=== PATIENT | female | born 1945 | race Caucasian/White ===

== ENCOUNTER 2021-08-22 14:25 | Outpatient (RCR) | payer MEDICARE, SELFPAY ==
--- NOTE | 2021-08-23 14:43 | PT.OPEX ---
PT [place] Outpatient Eval PT [facility] Outpatient Eval Start: 08/22/21 07:10 Freq: Status: Active Protocol: Document 08/22/21 07:10 [email or web address] (Rec: 08/22/21 07:20 [email or web address] [id number]) E-Signed By Shaneka Robertson PT Physical Therapy Outpatient Evaluation Insurance Information Recert Due Date 11/16/21 Insurance Name Medicare B Medical Diagnosis Rt Shoulder Pain Treating Diagnosis Impaired Rt shoulder strength and range Reduced ease of ADL's Referring MD Dr Maria T Bowen Subjective Subjective Fatmata reports having Rt shoulder pain after a fall on August 08. Complete testing of X-ray at knees (ayala TKR) and elbow and shoulder, without fracture. She fell down a hill , which was steeper than she had thought. She landed on her knees and Rt shoulder. I am feeling better now, but thought I should still have it looked at. I have participated in low impact aerobics at [address]. It has not been bothering me. I still am able to walk, I complete 2 -3 miles total per day - not all at once. She is right dominant/involved side. I can sleep on Rt side. I am still able to do full reach and all previous lifting and self cares. Pain Comments 0/10 this past week, but it was initially 5/10 Date of Last Physician Visit 08/17/21 Current Work Status Retired Precautions Treatment Precautions/Contraindications High Blood Pressure, OA, Ayala TKR, Obesity, Basal Cell CA ( forehead), Urinary Incontinence Weight Bearing Status Full Weight Bearing Therapy Limitations/Systems Review Not Limited Objective Range of Motion Ayala shoulder AROM was WNL and symmetric. Completed without report of pain or discomfort Strength Ayala shoulder normal 5/5 and was completed without report of pain. Palpation Unable to recreate pain at shoulder joint or surrounding tissue - with the exception of at ayala med scap border. PA grade 2-3 mobs was pain free. I believe she has an inherant weakness here and is trigger point sensetive. Posture Slight increased upper CX lordosis Sensation/Reflexes Normal ayala biceps DTR Functional Test Performed & Score Functional reach is symmetric Rt=Lt of: IR to T9 without pain. ER to T3 pain free Assessment Assessment/Impression 75 yo with DX of Rt shoulder pain. secondary to fall she had on 08/08/21. She has had X- rays and no fractures found. She has had much less pain over the past few weeks, but wanted to have shoulder cleared before being too active again with exercise classes. She has symmetric Biceps DTR, normal and symmetric AROM and MMT ayala UE. Functional reach behind head and behind back are of very good range and pain free. Deep breath and modified press up without pain. She does have trigger point sensitivity at ayala med scap border - rhomboid insertion. She will benefit from education in a progressive strengthening routine for tristin-scapular mm. Thank you for this referral. Plan of Care Rehabilitation Potential Good Physical Therapy Goals In 1 visit, we will complete: 1. Full Rt shoulder PT evaluation. MET 2. Compile and educate client in strengthening MB/tristin- scapular HEP with HO and written instructions. MET 3. LTG; resume aerobic low impact strengthening class 3X/ Wk at [address] [place] [address]. Coordination/Communication With Referral Source Treatment Plan/Direct Interventions Neuromuscular Re-ed,Self-Care/ Home Management,Therapeutic Exercises Frequency/Duration 1X/Wk for 1 visit, but be placed on HOLD for up to 6 visits should symptoms return or worsen. Patient Will Be Discharged From Therapy Completion of LTG(s),Skills Plateau,Independent w/HEP, Independently Progressing Evaluation Billing Untimed Code Treatment Minutes 24 Complexity Moderate Certification Information Initial Certification Date 08/22/21 Ending Certification Date 11/16/21 Document 08/22/21 15:12 WILFRIDO (Rec: 08/22/21 15:16 [email or web address] [id number]) E-Signed By Shaneka Robertson, PT Physical Therapy Outpatient Evaluation Insurance Information Recert Due Date 11/16/21 Insurance Name Medicare B Medical Diagnosis Rt Shoulder Pain Treating Diagnosis Impaired Rt shoulder strength and range Reduced ease of ADL's Referring MD Dr Maria T Bowen Subjective Subjective Fatmata reports having Rt shoulder pain after a fall on August 08. Complete testing of X-ray at knees (ayala TKR) and elbow and shoulder, without fracture. She fell down a hill , which was steeper than she had thought. She landed on her knees and Rt shoulder. I am feeling better now, but thought I should still have it looked at. I have participated in low impact aerobics at [address] [place] [address]. It has not been bothering me. I still am able to walk, I complete 2 -3 miles total per day - not all at once. She is right dominant/involved side. I can sleep on Rt side. I am still able to do full reach and all previous lifting and self cares. Pain Comments 0/10 this past week, but it was initially 5/10 Date of Last Physician Visit 08/17/21 Current Work Status Retired Precautions Treatment Precautions/Contraindications High Blood Pressure, OA, Ayala TKR, Obesity, Basal Cell CA ( forehead), Urinary Incontinence Weight Bearing Status Full Weight Bearing Therapy Limitations/Systems Review Not Limited Objective Range of Motion Ayala shoulder AROM was WNL and symmetric. Completed without report of pain or discomfort Strength Ayala shoulder normal 5/5 and was completed without report of pain. Palpation Unable to recreate pain at shoulder joint or surrounding tissue - with the exception of at ayala med scap border. PA grade 2-3 mobs was pain free. I believe she has an inherant weakness here and is trigger point sensetive. Posture Slight increased upper CX lordosis Sensation/Reflexes Normal ayala biceps DTR Functional Test Performed & Score Functional reach is symmetric Rt=Lt of: IR to T9 without pain. ER to T3 pain free Assessment Assessment/Impression 75 yo with DX of Rt shoulder pain. secondary to fall she had on 08/08/21. She has had X- rays and no fractures found. She has had much less pain over the past few weeks, but wanted to have shoulder cleared before being too active again with exercise classes. She has symmetric Biceps DTR, normal and symmetric AROM and MMT ayala UE. Functional reach behind head and behind back are of very good range and pain free. Deep breath and modified press up without pain. She does have trigger point sensitivity at ayala med scap border - rhomboid insertion. She will benefit from education in a progressive strengthening routine for tristin-scapular mm. Thank you for this referral. Plan of Care Rehabilitation Potential Good Physical Therapy Goals In 1 visit, we will complete: 1. Full Rt shoulder PT evaluation. MET 2. Compile and educate client in strengthening MB/tristin- scapular HEP with HO and written instructions. MET 3. LTG; resume aerobic low impact strengthening class [place]/ [place] Coordination/Communication With Referral Source Treatment Plan/Direct Interventions Neuromuscular Re-ed,Self-Care/ Home Management,Therapeutic Exercises Frequency/Duration 1X/Wk for 1 visit, but be placed on HOLD for up to 6 visits should symptoms return or worsen. Patient Will Be Discharged From Therapy Completion of LTG(s),Skills Plateau,Independent w/HEP, Independently Progressing Evaluation Billing Untimed Code Treatment Minutes 24 Complexity Moderate Certification Information Initial Certification Date 08/22/21 Ending Certification Date 11/16/21
== END 2021-10-20 08:41 | disposition home or self-care (01) ==
PROVIDERS: PCP Family Medicine; Visit Provider Family Medicine
DX: M25.511 Pain in right shoulder (principal); Z51.89 Encounter for other specified aftercare
CPT/HCPCS: 97110; 97162

== ENCOUNTER 2021-11-07 10:05 | Outpatient (CLI) | payer MEDICARE, SELFPAY ==
[2021-11-07 09:50] LABS: Albumin* 4.3 g/dL (3.3-5.0)
[2021-11-07 09:51] LABS: Chloride* 104 mmol/L (96-114); Potassium* 5.2 mmol/L (3.6-5.1); Sodium* 139 mmol/L (135-149)
[2021-11-07 09:53] LABS: Bilirubin Total* 0.4 mg/dL (0.1-1.5); Carbon Dioxide* 29 mmol/L (20-32); Cholesterol* 218 mg/dL (90-199); Creatinine* 0.7 mg/dL (0.5-1.5); Estimated Glomerular Filt Rate 88 ml/min
[2021-11-07 09:54] LABS: Alanine Aminotransferase* 14 U/L (4-35); Alkaline Phosphatase* 85 U/L (40-150); Aspartate Amino Transferase* 20 U/L (12-35); Blood Urea Nitrogen* 14 mg/dL (7-30); Calcium* 9.2 mg/dL (8.4-10.6); Glucose* 101 mg/dL (60-115); HDL Cholesterol* 61 mg/dL (>=50); LDL Cholesterol Calculated 93 mg/dL (<100); Total Protein* 7.2 g/dL (6.0-8.3); Triglycerides* 322 mg/dL (40-149)
== END 2021-11-07 10:06 | disposition home or self-care (01) ==
PROVIDERS: PCP Family Medicine; Visit Provider Family Medicine
DX: Z00.00 Encounter for general adult medical examination without abnormal findings (principal); I10 Essential (primary) hypertension; E78.5 Hyperlipidemia, unspecified; E66.01 Morbid (severe) obesity due to excess calories
CPT/HCPCS: 80053; 80061

== ENCOUNTER 2021-11-10 09:06 | Outpatient (CLI) | payer MEDICARE, SELFPAY ==
--- NOTE | 2021-11-10 09:15 | CRLHL7_ITS ---
For Patients: As a result of the Century Cures Act, medical imaging exams and procedure reports are released immediately into your electronic medical record. You may view this report before your referring provider. If you have questions, please contact your health care provider. BILATERAL SCREENING MAMMOGRAM WITH COMPUTER-AIDED DETECTION TECHNIQUE: CC and MLO views were obtained. These mammographic images have been obtained using full-field digital technique. These mammographic images were interpreted with the benefit of computer-aided detection. COMPARISON FILM: 10/21/20, 07/31/18, 06/10/17. FINDINGS: There are scattered areas of fibroglandular density IMPRESSION: There is no radiographic evidence for malignancy. ASSESSMENT: BI-RADS Category 1: Negative RECOMMENDATION: Routine screening mammogram in 1 year. A lay language report of this examination will be provided to the patient. Eliot Henry M.D. Diagnostic Radiologist [email or web address] PRESLEY/evette / be/Dictated by: Eliot Henry MD @ 11/10/2021 10:09:00 AM (Electronically Signed)
== END 2021-11-10 09:07 | disposition home or self-care (01) ==
LOC: MAMMO 09:07
PROVIDERS: PCP Family Medicine; Visit Provider Family Medicine
DX: Z12.31 Encounter for screening mammogram for malignant neoplasm of breast (principal)
CPT/HCPCS: 77063; 77067

== ENCOUNTER 2022-11-06 09:15 | Outpatient (CLI) | payer MEDICARE, SELFPAY | END 2022-11-06 09:16 | disposition home or self-care (01) | PROVIDERS: PCP Family Medicine; Visit Provider Family Medicine | DX: E78.5 Hyperlipidemia, unspecified (principal); I10 Essential (primary) hypertension; E66.9 Obesity, unspecified; R73.03 Prediabetes | CPT/HCPCS: 80053; 80061 ==

== ENCOUNTER 2022-11-12 12:58 | Outpatient (CLI) | payer MEDICARE, SELFPAY ==
--- NOTE | 2022-11-12 13:20 | CRLHL7_ITS ---
For Patients: As a result of the Century Cures Act, medical imaging exams and procedure reports are released immediately into your electronic medical record. You may view this report before your referring provider. If you have questions, please contact your health care provider. BILATERAL SCREENING MAMMOGRAM WITH COMPUTER-AIDED DETECTION TECHNIQUE: CC and MLO views were obtained. These mammographic images have been obtained using full-field digital technique. These mammographic images were interpreted with the benefit of computer-aided detection. COMPARISON FILM: 11/10/21, 10/21/20, 07/31/18. FINDINGS: There are scattered areas of fibroglandular density IMPRESSION: There is no radiographic evidence for malignancy. ASSESSMENT: BI-RADS Category 1: Negative RECOMMENDATION: Routine screening mammogram in 1 year. A lay language report of this examination will be provided to the patient. Eliot Henry M.D. Diagnostic Radiologist [email or web address] JOSE/Dictated by: Eliot Henry MD @ 11/13/2022 12:26:00 PM (Electronically Signed)
== END 2022-11-12 12:59 | disposition home or self-care (01) ==
LOC: MAMMO 12:59
PROVIDERS: PCP Family Medicine; Visit Provider Family Medicine
DX: Z12.31 Encounter for screening mammogram for malignant neoplasm of breast (principal)
CPT/HCPCS: 77067

== ENCOUNTER 2023-11-05 07:30 | Outpatient (CLI) | payer MEDICARE, SELFPAY | END 2023-11-05 07:31 | disposition home or self-care (01) | LOC: NFLDREF 11-09 06:30 | PROVIDERS: PCP Family Medicine; Referring Provider Family Medicine; Visit Provider Family Medicine | DX: E78.5 Hyperlipidemia, unspecified (principal); I10 Essential (primary) hypertension; R73.01 Impaired fasting glucose | CPT/HCPCS: 80053; 80061 ==

== ENCOUNTER 2023-11-22 08:37 | Outpatient (CLI) | payer MEDICARE, SELFPAY | END 2023-11-22 08:38 | disposition home or self-care (01) | PROVIDERS: PCP Family Medicine; Visit Provider Family Medicine | DX: R41.3 Other amnesia (principal); R53.83 Other fatigue | CPT/HCPCS: 82607; 84443 ==

== ENCOUNTER 2024-11-24 14:55 | Outpatient (CLI) | payer MEDICARE, SELFPAY | END 2024-11-24 14:56 | disposition home or self-care (01) | LOC: NFLDREF 11-30 20:14 | PROVIDERS: PCP Family Medicine; Referring Provider Family Medicine; Visit Provider Family Medicine | DX: E78.5 Hyperlipidemia, unspecified (principal); I10 Essential (primary) hypertension; R73.03 Prediabetes; E53.8 Deficiency of other specified B group vitamins; E55.9 Vitamin D deficiency, unspecified | CPT/HCPCS: 80053; 80061 ==

== ENCOUNTER 2025-01-05 08:00 | Outpatient (RCR) | payer MEDICARE, SELFPAY ==
[2024-12-29] MEDS: SODIUM CHLORIDE 0.9 % (FLUSH) 10 ML SYRINGE IVF (08:49)
[2024-12-29] MEDS: REGADENOSON 0.4 MG/5 ML SYRINGE IVP (08:49)
[2024-12-29 09:02] VITALS: BP 139/75; PULSE 81; RESP 16
--- NOTE | 2024-12-29 09:09 | W.PM.STED ---
Stress Test Note Date Date Seen: 12/29/24 Date of test: 12/29/24 Providers Primary care provider: Maria T Bowen Stress test physician: Alesha Tao Stress Test Note Stress test ordered: Lexiscan Indication for test: Shortness of breath Stress test medicine: Lexiscan Results discussion: Resting EKG: Sinus rhythm, 70 beats per minute, some artifact. Resting blood pressure: 114/68 Stress test: Patient is consented on ordered stress test of Lexiscan and agrees to proceed. Patient became significantly symptomatic with the infusion of the regadenoson having significant dyspnea, lightheadedness to the point of feeling she might pass out, flushing. She did maintain her blood pressure, we did get a pulse oximeter on her and she was 98%, auscultation of her lungs at the time revealed clear lung sounds, no wheezing. We did have to stop the walking portion and got the patient sitting down, she did recover from these symptoms. She never had any chest discomfort through this. There was no arrhythmia noted, no diagnostic ischemic changes found with EKG monitoring. Patient had recovered and was stable at the termination of the EKG monitoring. She will have post stress nuclear medicine images obtained, await reading of the nuclear medicine images to couple this for a full formal diagnostic. Impression: Subjectively very symptomatic with shortness of breath and lightheadedness which could be medication side effects, objectively negative EKG portion of this test. Follow up suggested: Patient was back to baseline by the end of monitoring on the EKG. She will have her post-stress images obtained. Await full nuclear medicine imaging report to couple this for a full formal diagnostic.
== END 2025-01-12 23:59 | disposition home or self-care (01) ==
LOC: STRESS 08:00
PROVIDERS: PCP Family Medicine; Visit Provider Family Medicine
DX: R06.02 Shortness of breath (principal)
CPT/HCPCS: 78452; 93016; 93017; A9500; J2785